=== PATIENT | male | born 2000 | race American Indian/Alaskan Native ===

== ENCOUNTER 2022-01-05 04:29 | Emergency (ER) | payer SELFPAY ==
--- NOTE | 2022-01-05 05:57 | XRay Report ---
LEFT KNEE 4 VIEW(S) INDICATION / CLINICAL INFORMATION: injury COMPARISON: None available. FINDINGS: Small nonlayering suprapatellar joint effusion is demonstrated. No acute fracture. No significant sof t tissue swelling. IMPRESSION: 1. No evidence of acute osseous injury. Ligamentous injury not excluded. MRI may be useful for furthe r evaluation. Signer Name: Lance Hansen II, MD Signed: 01/05/2022 5:52 AM Workstation Name: [id number]
[2022-01-05] MEDS ORDERED: HYDROcodone/ACETAMINOPHEN 5-325 MG TAB PO ONE (06:35)
[2022-01-05] MEDS ORDERED: IBUPROFEN 800 MG TAB PO ONE (06:35)
--- NOTE | 2022-01-05 06:36 | Emergency Department Report ---
ED General Adult HPI - General Chief complaint: Extremity Injury, Lower Stated complaint: LEFT LEG/TOE INJURY Time Seen by Provider: 01/05/22 06:28 Source: patient Mode of arrival: Ambulatory Limitations: No Limitations - History of Present Illness Initial comments: 21-year-old male with no significant past medical history reports to the ER after playing basketball yesterday and injuring his left knee. Patient reports taking [id number] medication and resting with no relief. Patient reports his pain is 10 out of 10. Patient reports no other acute signs or symptoms. Patient is ambulatory. - Related Data Previous Rx's Medication Instructions Recorded Last Taken Type Acetaminophen/Codeine [Tylenol 1 tab PO Q6H PRN 2 Days #8 tab 01/05/22 Unknown Rx /Codeine # 3 tab] Ibuprofen [Motrin] 800 mg PO Q8HR PRN 6 Days #18 01/05/22 Unknown Rx tablet methOCARBAMOL [Robaxin TAB] 500 mg PO BID PRN 7 Days #14 tab 01/05/22 Unknown Rx Allergies Allergy/AdvReac Type Severity Reaction Status Date / Time No Known Allergies Allergy Unverified 01/05/22 04:39 ED Review of Systems ROS: Stated complaint: LEFT LEG/TOE INJURY Other details as noted in HPI Comment: All other systems reviewed and negative Musculoskeletal: other (Left knee pain) ED Past Medical Hx - Past Medical History Previous Medical History?: No - Social History Smoking Status: Current Every Day Smoker Substance Use Type: None - Medications Home Medications: Home Medications Medication Instructions Recorded Confirmed Last Taken Type Acetaminophen/Codeine [Tylenol 1 tab PO Q6H PRN 2 Days #8 tab 01/05/22 Unknown Rx /Codeine # 3 tab] Ibuprofen [Motrin] 800 mg PO Q8HR PRN 6 Days #18 01/05/22 Unknown Rx tablet methOCARBAMOL [Robaxin TAB] 500 mg PO BID PRN 7 Days #14 tab 01/05/22 Unknown R x ED Physical Exam - General Limitations: No Limitations General appearance: alert, in no apparent distress - Head Head exam: Present: atraumatic, normocephalic - Eye Eye exam: Present: normal appearance - ENT ENT exam: Present: mucous membranes moist - Neck Neck exam: Present: normal inspection - Respiratory Respiratory exam: Present: normal lung sounds bilaterally. Absent: respiratory distress - Cardiovascular Cardiovascular Exam: Present: regular rate, normal rhythm. Absent: systolic murmur, diastolic murmur, rubs, gallop - GI/Abdominal GI/Abdominal exam: Present: soft, normal bowel sounds - Rectal Rectal exam: Present: deferred - Extremities Exam Extremities exam: Present: normal inspection, other (Negative Lachemann and negative anterior drawer test on left knee. Limited range of motion due to pain.) - Expanded Lower Extremity Exam Left Knee exam: Present: tenderness, swelling. Absent: deformity, dislocation - Back Exam Back exam: Present: normal inspection - Neurological Exam Neurological exam: Present: alert, oriented X3 - Psychiatric Psychiatric exam: Present: normal affect, normal mood - Skin Skin exam: Present: warm, dry, intact, normal color. Absent: rash ED Course Vital Signs 01/05/22 04:35 Temperature 98.5 F Pulse Rate 74 Respiratory 18 Rate Blood Pressure 124/71 O2 Sat by Pulse 99 Oximetry ED Medical Decision Making - Radiology Data [facility] [address] [place] [address] XRay Report Signed Patient: ZEYNEP SALES MR#: [id number] 3 : 2000 Acct:[id number] Age/Sex: 21 / M ADM Date: 01/05/22 Loc: ED Attending Dr: Ordering Physician: ED MD [id number] Date of Service: 01/05/22 Procedure(s): XR knee 3V LT Accession Number(s): [id number] cc: ED MD RAJEEV Fluoro Time In Minutes: LEFT KNEE 4 VIEW(S) INDICATION / CLINICAL INFORMATION: injury COMPARISON: None available. FINDINGS: Small nonlayering suprapatellar joint effusion is demonstrated. No acute fracture. No significant soft tissue swelling. IMPRESSION: 1. No evidence of acute osseous injury. Ligamentous injury not excluded. MRI may be useful for further evaluation. Signer Name: Lore Hansen II, MD Signed: 01/05/2022 5:52 AM Workstation Name: [id number] Transcribed By: DALE Dictated By: LORE HANSEN II, MD Electronically Authenticated By: LORE HANSEN II, MD Signed Date/Time: 01/05/2252 DD/ TD/TT: - Medical Decision Making 18-year-old male left knee injury from playing vascular yesterday. Left knee pain with tenderness slight swelling. Negative anterior drawer test and negative Lachemann test noted. Range of motion limited due to pain. Patient is ambulatory. X-ray of left knee with no acute fracture noted or dislocation. Patient received oral medications here in ER. Patient discharged with oral medication prescription for pain control. Patient is a plan of care verbalized understanding. Patient informed if symptoms are to persist to report to his primary care provider for MRI evaluation. Patient is a plan of care and verbalized understanding. Patient informed if symptoms were to get worse to report back to the ER. Vital Signs 01/05/22 04:35 Temperature 98.5 F Pulse Rate 74 Respiratory 18 Rate Blood Pressure 124/71 O2 Sat by Pulse 99 Oximetry Critical care attestation.: If time is entered above; I have spent that time in minutes in the direct care of this critically ill patient, excluding procedure time. ED Disposition Clinical Impression: Left knee injury Qualifiers: Encounter type: initial encounter Qualified Code(s): S89.92XA - Unspecified injury of left lower leg, initial encounter Left knee pain Qualifiers: Chronicity: acute Qualified Code(s): M25.562 - Pain in left knee Disposition: 01 HOME / SELF CARE / HOMELESS Is pt being admited?: No Condition: Stable Instructions: Acute Knee Pain, Adult, Musculoskeletal Pain, Knee Sprain, Adult, [id number] Additional Instructions: if pain persist please follow up with your primary care provider for possible MRI Prescriptions: Ibuprofen [Motrin] 800 mg PO Q8HR PRN 6 Days #18 tablet PRN Reason: Pain , Severe (7-10) methOCARBAMOL [Robaxin TAB] 500 mg PO BID PRN 7 Days #14 tab PRN Reason: muscle spasm Acetaminophen/Codeine [Tylenol /Codeine # 3 tab] 1 tab PO Q6H PRN 2 Days #8 tab PRN Reason: Pain , Severe (7-10)
[2022-01-05 06:56] VITALS: BP 132/88
== END 2022-01-05 06:57 | disposition home or self-care (01) ==
LOC: ED 04:29
DX: S89.92XA Unspecified injury of left lower leg, initial encounter (principal); F17.200 Nicotine dependence, unspecified, uncomplicated; Z79.899 Other long term (current) drug therapy; W21.05XA Struck by basketball, initial encounter; Y93.67 Activity, basketball; Y92.89 Other specified places as the place of occurrence of the external cause; Y99.8 Other external cause status
CPT/HCPCS: 99283